=== PATIENT | male | born 1980 | race Caucasian/White ===

== ENCOUNTER 2017-06-07 08:30 | Outpatient (CLI) | payer OTHER ==
[2017-06-07] MEDS ORDERED: GADOPENTETATE DIMEGLUMINE 5 ML VIAL IVP ONE ×2 (09:10→09:36)
[2017-06-07] MEDS ORDERED: IOTHALAMATE MEGLUMINE 50 ML VIAL ONE (09:10)
[2017-06-07] MEDS ORDERED: LIDOCAINE 1% 10 ML MDV SUBQ ONE (09:36)
[2017-06-07] MEDS ORDERED: IOTHALAMATE MEGLUMINE 50 ML VIAL IVP ONE (09:36)
--- NOTE | 2017-06-07 12:09 | XRAY Report ---
RIGHT WRIST INJECTION FOR MR ARTHROGRAM: 06/07/2017 CLINICAL INDICATION: Pain in right wrist. FINDINGS: Following obtaining informed consent, the patient's right wrist was prepped and draped in the usual sterile fashion. The skin and soft tissues were anesthetized with lidocaine. A butterfly needle was inserted into the radiocarpal joint space, and following confirmation of needle positioning, a combination of iodinated contrast, dilute gadolinium, and lidocaine was injected intraarticularly. The patient tolerated the procedure well. No immediate complications. Spot images demonstrate no evidence of contrast extravasation. IMPRESSION: SUCCESSFUL RIGHT WRIST INJECTION FOR MR ARTHROGRAM. FLUOROSCOPY TIME: 46 SECONDS; 3 SPOT IMAGES OBTAINED. TD: 06/07/2017 12:09
--- NOTE | 2017-06-07 16:22 | MRI Report ---
EXAM: Right Wrist MRI Arthrogram With Contrast EXAM DATE: 06/07/2017 10:16 AM. CLINICAL HISTORY: Right wrist injury one month ago. Right wrist pain. COMPARISON: None. TECHNIQUE: Multiplanar, multisequence T1-weighted and fluid-sensitive sequences of the wrist after an arthrographic injection of dilute gadolinium, dictated under a separate exam. Other: None. FINDINGS: Bones: Small bone fragment adjacent to the dorsal aspect of the base of the third metacarpal which ma y represent an accessory ossicle or old ununited fracture. No acute fracture. Cartilage: The articular cartilage is unremarkable. There is a tiny 1 mm full-thickness tear at the r adial aspect of the triangular fibrocartilage articular disk (coronal image 12 of series 901). Ligaments: The scapholunate and lunotriquetral ligaments are intact. The visualized other intrinsic, extrinsic and collateral ligaments are unremarkable. Tendons: The extensor compartments I through and flexor tendons are unremarkable. Musculature: No edema or fatty atrophy. Other: The contents of the carpal tunnel, including the median nerve, are unremarkable. Guyons canal is unremarkable. No ganglion cysts. The subcutaneous tissues are unremarkable. IMPRESSION: 1. Small bone fragment adjacent to the dorsal aspect of the base of the third metacarpal which may re present an accessory ossicle or old ununited fracture. There is mild pseudarthrosis between the ossif ied fragment and the dorsal aspect of the base of the third metacarpal. 2. Tiny 1 mm full-thickness tear at the radial aspect of the triangular fibrocartilage articular disk . [facility] SE[facility] Referring Provider Line: [phone] SITE ID: [id number]
== END 2017-06-07 08:31 | disposition home or self-care (01) ==
LOC: DI 08:30
PROVIDERS: ATTEND Physician Assistant
DX: S63.591A Other specified sprain of right wrist, initial encounter (principal)
CPT/HCPCS: 25246; 73222; 77002; Q9961

== ENCOUNTER 2020-11-02 20:57 | Emergency (ER) | payer OTHER ==
[2020-11-02] MEDS ORDERED: KETOROLAC 30 MG/ML VIAL IM STA (21:10)
--- NOTE | 2020-11-02 21:12 | ED Physician Documentation ---
History of Present Illness - Stated complaint Stated Complaint: RIGHT SHOULDER PX - Chief complaint Chief Complaint: Trauma Ext - History obtained from History obtained from: Patient - Additonal information Additional information: 40-year-old man Presents with sudden onset pain to the right shoulder radiating to the clavicle around 7:15 PM when he was playing softball and fell downwards, sliding onto his right outstretched arm that was out with, sustaining sudden onset 7 out of 10 sharp pain to the shoulder that has now improved to 2 out of 10 without any medications. It goes back up to a 7 out of 10 at the shoulder.Endorses difficulty holding objects as well without pain. no swelling or deformity. He has tweaked this shoulder before. Review of Systems Musculoskeletal: reports: Extremity pain, Joint pain PD PAST MEDICAL HISTORY - Past Medical History : Kidney stones - Past Surgical History Past Surgical History: Yes - Present Medications Home Medications: Ambulatory Orders Medication Instructions Recorded Confirmed Tamsulosin [Flomax] 0.4 mg PO DAILY PRN #7 capsule 03/30/13 Tramadol HCl/Acetaminophen 1 each PO Q6-8H PRN #20 tablet 03/30/13 [Ultracet Tablet] HYDROcod/ACETAM 5/325 [Vicodin 1 - 2 ea PO Q6H PRN #15 tablet 04/14/13 5/325] Ibuprofen [Motrin] 600 mg PO Q6H PRN #30 tab 04/14/13 - Allergies Allergies/Adverse Reactions: Allergies Allergy/AdvReac Type Severity Reaction Status Date / Time codeine Allergy N/V Verified 11/02/20 21:05 Penicillins Allergy Unknown Verified 11/02/20 21:05 - Social History Does the pt smoke?: Yes Smoking Status: Current every day smoker Does the pt drink ETOH?: No Does the pt have substance abuse?: No - Immunizations Immunizations are current?: Yes - POLST Patient has POLST: No PD ED PE NORMAL - Vitals Vital signs reviewed: Yes - General General: Alert and oriented X 3, No acute distress, Well developed/nourished - HEENT HEENT: Atraumatic, PERRL, EOMI - Neck Neck: No bony TTP - Cardiac Cardiac: RRR - Respiratory Respiratory: No respiratory distress, Clear bilaterally - Derm Derm: Normal color, Warm and dry - Extremities Extremities: Other (R clavicle discomfort to palpation along AC joint. R shoulder tender with ROM) - Neuro Neuro: No motor deficit, No sensory deficit - Psych Psych: Normal mood, Normal affect Results - Vitals Vitals: Vital Signs - 24 hr 11/02/20 21:00 Temperature 36.5 C Heart Rate 81 Respiratory 16 Rate Blood Pressure 163/100 H O2 Saturation 98 Oxygen O2 Source Room air PD MEDICAL DECISION MAKING - ED course ED course: 40-year-old man presents with right shoulder pain without signs of fracture or dislocation on x-ray. Likely shoulder strain and possible AC joint sprain. Education given about symptom management. Sling placed. Return precautions given. Orthopedics referral provided as needed. Departure - Departure Disposition: Home, Self Care Clinical Impression: Shoulder pain Condition: Good Instructions: ED Sprain AC Joint Follow-Up: Scar Bazzi MD [Provider Admit Priv/Credential] - Comments: You were seen in the emergency department for sudden onset right shoulder pain after softball accident. Your shoulder is not dislocated or broken but you may have a small tear in your acromioclavicular joint. You should take ibuprofen 600 mg every 6 hours as needed for pain and for its anti-inflammatory properties, apply ice for 20 minutes every hour, wear the sling for comfort reasons, and try to do early range of motion exercises as soon as possible in order to prevent frozen shoulder. Follow-up with orthopedics in 1 week if you do not have improvement. Return to the emergency department if you have any new or worsening symptoms or other concerns.
[2020-11-02 21:55] VITALS: BP 132/90
--- NOTE | 2020-11-02 22:12 | XRAY Report ---
PROCEDURE: Shoulder 2 View RT INDICATIONS: shoulder pain s/p fall TECHNIQUE: Views of the shoulder were acquired. COMPARISON: None. FINDINGS: Bones: No fractures or dislocations. No suspicious bony lesions. Visualized ribs appear intact. Soft tissues: No suspicious soft tissue calcifications. IMPRESSION: Normal right shoulder Reviewed by: Joe Noriega on 11/02/2020 10:11 PM PDT Approved by: Joe Noriega on 11/02/2020 10:11 PM PDT Station ID: [id number]
== END 2020-11-02 21:54 | disposition home or self-care (01) ==
LOC: ED 20:57
DX: M25.511 Pain in right shoulder (principal); W18.39XA Other fall on same level, initial encounter; Y93.64 Activity, baseball; Y92.320 Baseball field as the place of occurrence of the external cause; F17.200 Nicotine dependence, unspecified, uncomplicated
CPT/HCPCS: 96372; 99281; 99283

== ENCOUNTER 2021-12-07 08:38 | Outpatient (CLI) | payer OTHER ==
--- NOTE | 2021-12-08 10:34 | MRI Report ---
PROCEDURE: Knee RT W/O INDICATIONS: RIGHT KNEE PAIN TECHNIQUE: Noncontrast sagittal PD fast spin echo and T2 fast spin echo with fat saturation, sagittal 3-D gradie nt sequence with fat saturation; coronal T1 spin echo and PD fast spin echo with fat saturation, and axial PD fast spin echo with fat saturation through the knee. COMPARISON: None. FINDINGS: Image quality: Excellent. Menisci: The medial and lateral menisci demonstrate normal morphology and internal signal. The meni scal root ligaments appear intact. Cruciate ligaments: Fluid signal and mildly thickened anterior cruciate ligament is seen, sprain/low- grade intrasubstance partial thickness tear cannot be excluded. PCL is intact. Medial structures: Very mild medial collateral ligament sprain near its femoral insertion is likely p resent. The posterior oblique ligament, semimembranosus tendon insertions, and oblique popliteal liga ment, and meniscocapsular junction appear intact. Visualized portions of the pes anserinus tendons a ppear normal. No abnormal bursal fluid. Lateral structures: The lateral collateral ligament, long and short heads of the biceps femoris tend on appear intact. The popliteus tendon appears normal; the popliteofibular ligament appears intact. Iliotibial band appears normal. Anterior structures: Distal quadriceps tendinosis at its superior patella insertion is seen. Patellar tendon is intact. Patellar alignment is normal. No femoral trochlear dysplasia or ventral trochlear prominence. No edema in the infrapatellar fat pad. Bones and cartilage: No bone marrow contusions or fractures. The cartilage of the medial and latera l femorotibial compartments, as well as the patellofemoral compartment, appears normal in thickness. Joint space: There is small knee joint fluid. No Bhatia's cyst. Normal appearing synovial plicae ar e incidentally noted. IMPRESSION: 1. Finding may represent mild ACL sprain/low-grade intrasubstance partial thickness tear. No full-thi ckness ACL rupture. PCL is intact. 2. Very mild proximal MCL sprain. 3. No evidence of focal meniscal tear. 4. Distal quadriceps tendinosis and possible low-grade intrasubstance partial thickness tear at its s uperior patella insertion. Trace amount of fluid distending prepatellar bursa which may represent mil d bursitis. 5. No marrow edema. No fracture or dislocation. Articulating cartilages are intact. Small joint effus ion, no gross loose bodies. Reviewed by: Srikanth eBll MD on 12/08/2021 10:33 AM PDT Approved by: Srikanth Bell MD on 12/08/2021 10:33 AM PDT Station ID: [id number]
== END 2021-12-07 08:39 | disposition home or self-care (01) ==
LOC: DI 08:38
PROVIDERS: ATTEND Family Medicine
DX: S83.411A Sprain of medial collateral ligament of right knee, initial encounter (principal); M67.863 Other specified disorders of tendon, right knee; M25.461 Effusion, right knee